=== PATIENT | male | born 1980 | race Caucasian/White ===

== ENCOUNTER 2018-09-30 08:01 | Emergency (ER) | payer OTHER ==
[~2018-09-30] VITALS: Ht 195.6 cm; Wt 90.7 kg
[~2018-09-30 08:01] MED LIST: KEFLEX500 MG PO; NOHOMEMEDICATIONS; NORCO 5-325 TA1 EACH PO
[2018-09-30 08:05] VITALS: BP 145/86
== END 2018-09-30 08:35 | disposition home or self-care (01) ==
LOC: M.ERS 08:01
DX: S61.215A Laceration without foreign body of left ring finger without damage to nail, initial encounter (principal); W26.0XXA Contact with knife, initial encounter; Y92.89 Other specified places as the place of occurrence of the external cause; Y93.89 Activity, other specified; Y99.8 Other external cause status

== ENCOUNTER 2020-07-21 09:11 | Emergency (ER) | payer OTHER ==
[~2020-07-21] VITALS: Ht 193 cm; Wt 95.3 kg
[2020-07-21 09:36] LABS: ABSOLUTE BASOPHILS 0.1 thou/uL (0.0-0.2); ABSOLUTE EOSINOPHILS 0.1 thou/uL (0.0-0.7); ABSOLUTE LYMPHOCYTES 1.5 thou/uL (0.8-5.3); ABSOLUTE MONOCYTES 0.3 thou/uL (0.0-1.2); ABSOLUTE NEUTROPHILS 4.9 thou/uL (1.6-8.1); EOSINOPHILS 1.3 %; HEMATOCRIT 47.2 % (42.0-52.0); HEMOGLOBIN 16.5 gm/dL (14.0-18.0); LYMPHOCYTES 21.3 %; MCH 33.3 pg (26.0-34.0); MCHC 34.9 g/dL (28.0-37.0); MCV 95.6 fL (80.0-100.0); MONOCYTES 4.9 %; MPV 8.2 fl. (7.2-11.1); NUCLEATED RBCS 0 /100WBC; PLATELET COUNT* 272 thou/uL (150-400); POLYS 71.5 %; RBC 4.94 mil/uL (4.50-6.00); RDW-CV 13.3 % (10.5-14.5); WBC 6.8 thou/uL (4.0-11.0)
[2020-07-21] MEDS ORDERED: CHOLESTEROL MED (09:52)
[2020-07-21 09:54] LABS: ANION GAP 8 mmol/L (7-16); BUN 12 mg/dL (7-18); CALCIUM 8.7 mg/dL (8.5-10.1); CHLORIDE 100 mmol/L (98-107); CO2 27 mmol/L (21-32); GLUCOSE 180 mg/dL (70-99); POTASSIUM 3.7 mmol/L (3.5-5.1); SODIUM 135 mmol/L (136-145)
[2020-07-21 09:57] LABS: APTT 29.4 Seconds (25.0-31.3); PROTIME 10.9 Seconds (9.20-11.50)
[2020-07-21 10:06] LABS: ALBUMIN 3.9 g/dL (3.4-5.0); ALKALINE PHOSPHATASE 81 U/L (46-116); CK-MB MASS < 0.5 ng/mL (<0.5-3.6); LIPASE 103 U/L (73-393); MAGNESIUM 1.8 mg/dL (1.8-2.4); NT-PRO BRAIN NAT PEPTIDE 22 pg/mL (<300); SGOT 16 U/L (15-37); SGPT 36 U/L (30-65); TOTAL BILIRUBIN 0.5 mg/dL (<0.1-1.0); TOTAL PROTEIN 7.7 g/dL (6.4-8.2)
[2020-07-21 10:19] VITALS: BP 163/88
--- NOTE | 2020-07-21 15:33 | EKG ---
[place] [address] ELECTROCARDIOGRAM REPORT Name: GONZALO SHAW Room: 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1980 Requested By: Derek Mcghee Order Number: [id number] MD: Darron Aleman Measurements Intervals [place] Rate: 73 P: 0 NE: 151 QRS: 0 QRSD: 184 T: QT: 347 QTc: 383 Interpretive Statements No further analysis attempted - not enough leads could be measured Baseline wander in lead(s) II,V1,V2,V3,V4,V6 Missing lead(s): I,III,aVR,aVL,aVF No previous ECG available for comparison Electronically Signed On 07-21-2020 15:33:46 [employer] by Darron Aleman [email or web address] <ELECTRONICALLY SIGNED> By: Darron Aleman MD, FACC 07/21/20 1533 6 6 Darron Aleman MD, FACC /EPI
--- NOTE | 2020-07-21 15:34 | EKG ---
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1980 Requested By: Derek Mcghee Order Number: [id number] MD: Darron Aleman Measurements Intervals [place] Rate: 74 P: 76 [place]: 141 QRS: 91 QRSD: 108 T: 38 QT: 386 QTc: 429 Interpretive Statements Sinus rhythm Borderline right axis deviation Borderline T wave abnormalities Baseline wander in lead(s) I,II,III,aVR,aVF Electronically Signed On 07-21-2020 15:34:05 [employer] by Darron Aleman [email or web address] <ELECTRONICALLY SIGNED> By: Darron Aleman MD, [facility] 07/21/20 1534 Darron Aleman MD, [facility] /EPI
== END 2020-07-21 10:19 | disposition home or self-care (01) ==
LOC: M.ERS 09:11
PROVIDERS: Family Medicine
DX: R07.89 Other chest pain (principal); Z20.828 Contact with and (suspected) exposure to other viral communicable diseases; Z88.8 Allergy status to other drugs, medicaments and biological substances